=== PATIENT | male | born 1990 | race Caucasian/White ===

== ENCOUNTER 2016-09-01 12:59 | Emergency (ER) | payer MEDICAID ==
[~2016-09-01] VITALS: Ht 177.8 cm; Wt 58.0 kg
[2016-09-01 13:03] VITALS: BP 113/60; PULSE 77; RESP 14; TEMP 98.2; O2SAT 98
[2016-09-01] MEDS ORDERED: LAMO150T PO (14:31)
[2016-09-01] MEDS ORDERED: CLON0.5T PO (14:31)
[2016-09-01] MEDS ORDERED: ZOLO100T PO (14:31)
[2016-09-01 14:54] LABS: AUTOMATED NEUTROPHIL # 3.6 TH/MM3 (1.8-7.7); BASOPHIL % 0.2 % (0.0-2.0); EOSINOPHIL # 0.2 TH/MM3 (0-0.4); HEMO FLAGS DIFF FINAL; LYMPH % 24.9 % (9.0-44.0); LYMPHOCYTE # 1.4 TH/MM3 (1.0-4.8); MEAN CELL VOLUME 86.7 FL (80.0-100.0); MEAN CORPUSCULAR HGB CONC 34.6 % (32.0-36.0); MONO % 7.7 % (0.0-8.0); NEUT % 64.2 % (16.0-70.0); PLATELET COUNT 214 TH/MM3 (150-450); RED BLOOD COUNT 5.07 MIL/MM3 (4.50-5.90); RED CELL DISTRIBUTION WIDTH 13.2 % (11.6-17.2); WHITE BLOOD COUNT 5.7 TH/MM3 (4.0-11.0)
--- NOTE | 2016-09-01 15:01 | PD ---
HPI Chief Complaint: Neuro Symptoms/ Deficits Time Seen by Provider: 14:48 Travel History International Travel<30 days: No Contact w/Intl Traveler<30days: No Traveled to known affect area: No History of Present Illness HPI 25 y/o male presents with feeling unsteady and feeling like he's having more falls. He states that he has history of seizures and takes Lamictal for these and has been taking it like he should. He states he has history of multiple head injuries any so is unsteady but it has felt worse over the past day like he is dehydrated or something. He states one of his falls he feels like he started to have more back pain than he usually does from his herniated disc. He denies other concurrent complaints. He feels worse when he moves around. He denies other modifying factors. Duration is a long time but states worse over the past day. PFSH Past Medical History Medical other: Yes (previous head injury) Seizures: Yes Past Surgical History Surgical History: No Previous Surgery Social History Alcohol Use: No Tobacco Use: No Substance Use: No Allergies-Medications (Allergen,Severity, Reaction): Coded Allergies: Sulfa (Verified Allergy, Unknown, 09/01/16) Reported Meds & Prescriptions Reported Meds & Active Scripts Active Reported Zoloft (Sertraline HCl) 100 Mg Tab 100 Mg PO DAILY Lamotrigine 150 Mg Tab 150 Mg PO BID Clonazepam 0.5 Mg Tab 0.5 Mg PO BID Review of Systems Except as stated in HPI: all other systems reviewed are Neg Physical Exam Narrative GENERAL: Well-nourished, well-developed patient. SKIN: Warm and dry. HEAD: Normocephalic EYES: No injection or drainage. ENT: No nasal drainage noted. NECK: Supple, trachea midline. CARDIOVASCULAR: Regular rate and rhythm RESPIRATORY: Breath sounds equal bilaterally at apices. No accessory muscle use. GASTROINTESTINAL: Abdomen soft, non-tender, nondistended. EXTREMITIES: No edema. BACK: Nontender without obvious deformity in midline, mild ttp to bilateral paraspinal area NEUROLOGICAL: Awake and alert. Motor and sensory grossly within normal limits. Normal speech. Data Data Last Documented VS Vital Signs Date Time Temp Pulse Resp B/P Pulse Ox O2 Delivery O2 Flow Rate FiO2 09/01/16 13:03 98.2 77 14 113/60 98 Room Air Orders Complete Blood Count With Diff (09/01/16 13:31) Basic Metabolic Panel (Bmp) (09/01/16 13:31) Alcohol (Ethanol) (09/01/16 13:31) Spine, Lumbar - Ltd (Ap & Lat) (09/01/16 ) Ct Brain W/O Iv Contrast(Rout) (09/01/16 ) Lamictal (Lamotrigine) (09/01/16 14:54) Sodium Chlor 0.9% 1000 Ml Inj (Ns 1000 M (09/01/16 15:15) Labs Laboratory Tests Test 09/01/16 14:35 White Blood Count 5.7 TH/MM3 Red Blood Count 5.07 MIL/MM3 Hemoglobin 15.2 GM/DL Hematocrit 44.0 % Mean Corpuscular Volume 86.7 FL Mean Corpuscular Hemoglobin 30.0 PG Mean Corpuscular Hemoglobin 34.6 % Concent Red Cell Distribution Width 13.2 % Platelet Count 214 TH/MM3 Mean Platelet Volume 7.9 FL Neutrophils (%) (Auto) 64.2 % Lymphocytes (%) (Auto) 24.9 % Monocytes (%) (Auto) 7.7 % Eosinophils (%) (Auto) 3.0 % Basophils (%) (Auto) 0.2 % Neutrophils # (Auto) 3.6 TH/MM3 Lymphocytes # (Auto) 1.4 TH/MM3 Monocytes # (Auto) 0.4 TH/MM3 Eosinophils # (Auto) 0.2 TH/MM3 Basophils # (Auto) 0.0 TH/MM3 CBC Comment DIFF FINAL Differential Comment Sodium Level 138 MEQ/L Potassium Level 4.1 MEQ/L Chloride Level 102 MEQ/L Carbon Dioxide Level 33.3 MEQ/L Anion Gap 3 MEQ/L Blood Urea Nitrogen 14 MG/DL Creatinine 1.12 MG/DL Estimat Glomerular Filtration 80 ML/MIN Rate Random Glucose 108 MG/DL Calcium Level 9.5 MG/DL Ethyl Alcohol Level LESS THAN 3 MG/DL MDM Medical Decision Making Medical Screen Exam Complete: Yes Emergency Medical Condition: Yes Medical Record Reviewed: Yes (pmh confirmed) Interpretation(s) CBC & BMP Diagram 09/01/16 14:35 Last 24 hours Impressions Lumbar Spine X-Ray 09/01/16 0000 Signed Impressions: Service Date/Time: Thursday, September 01, 2016 15:10 - CONCLUSION: Negative for an acute process.. Ishaan De La Rosa MD FACR Head CT 09/01/16 0000 Signed Impressions: Service Date/Time: Thursday, September 01, 2016 15:13 - CONCLUSION: No acute disease. Skyler Mast MD Differential Diagnosis Electrolyte abnormality, intracranial, renal failure, seizure disorder Narrative Course Will check blood work, CT brain, lumbar x-ray and monitor ed workup no emergent findings, lamictal lab is a send out test that can be followed outpatient, Patient denies any new complaints and states that they are feeling better. Patient happy with care, all questions answered. Patient knows that follow up is incumbent on them and to return to the emergency room immediately if new or worsening symptoms develop. Patient given strict return precautions, vitals reviewed and are normal, agrees to further workup as an outpatient. case packer and sealer here and questions answered and will watch over and help coordinate care Diagnosis Primary Impression: Fall Qualified Code: W19.XXXA - Fall, initial encounter Additional Impression: Dizziness Patient Instructions: General Instructions Additional Instructions: follow with primary sunday, return as needed, tylenol as needed Med/Other Pt SpecificInfo: No Change to Meds Disposition: 01 DISCHARGE HOME Condition: Stable Genevieve Byrne MD Sep 01, 2016 15:00
[2016-09-01 15:06] LABS: ANION GAP 3 MEQ/L (5-15); BICARBONATE 33.3 MEQ/L (21.0-32.0); BLOOD UREA NITROGEN 14 MG/DL (7-18); CHLORIDE 102 MEQ/L (98-107); GLOMERULAR FILTRATION RATE 80 ML/MIN (>89); POTASSIUM 4.1 MEQ/L (3.5-5.1); SODIUM (NA) 138 MEQ/L (136-145)
[2016-09-01] MEDS ORDERED: SODIUM CHLOR 0.9% 1000 ML INJ 1,000 ML IV ONE (15:15)
--- NOTE | 2016-09-01 15:44 | RADRPT ---
EXAM DATE/TIME: 09/01/2016 15:10 [facility] COMPARISON: No previous studies available for comparison. INDICATIONS : Lower back pain post seizure today MEDICAL HISTORY : None. SURGICAL HISTORY : None. ENCOUNTER: Initial ACUITY: 1 day PAIN SCORE: 5/10 LOCATION: Lumbar spine FINDINGS: Two view examination was performed. There are five non-rib bearing vertebral bodies. The vertebral bodies are in normal alignment without evidence of subluxation or scoliosis. The disc spaces are alejandra ntained. The pedicles are intact. Bony mineralization is normal. No fracture is identified. CONCLUSION: Negative for an acute process.. Ishaan De La Rosa MD FACR on September 01, 2016 at 15:41 Board Certified Radiologist. This report was verified electronically.
--- NOTE | 2016-09-01 15:47 | RADRPT ---
EXAM DATE/TIME: 09/01/2016 15:13 [facility] COMPARISON: No previous studies available for comparison. INDICATIONS : Evaluate for head injury, seizures. RADIATION DOSE: 56.35 CTDIvol (mGy) MEDICAL HISTORY : Seizures. SURGICAL HISTORY : None. ENCOUNTER: Initial ACUITY: 1 day PAIN SCALE: 2/10 LOCATION: Bilateral cranial TECHNIQUE: Multiple contiguous axial images were obtained of the head. Using automated exposure control and adj ustment of the mA and/or kV according to patient size, radiation dose was kept as low as reasonably a chievable to obtain optimal diagnostic quality images. DICOM format image data is available electro nically for review and comparison. FINDINGS: CEREBRUM: The ventricles are normal for age. No evidence of midline shift, mass lesion, hemorrhage or acute in farction. No extra-axial fluid collections are seen. POSTERIOR FOSSA: The cerebellum and brainstem are intact. The 4th ventricle is midline. The cerebellopontine angle i s unremarkable. EXTRACRANIAL: The visualized portion of the orbits is intact. SKULL: The calvaria is intact. No evidence of skull fracture. CONCLUSION: No acute disease. Skyler Mast MD on September 01, 2016 at 15:44 Board Certified Radiologist. This report was verified electronically.
[2016-09-01 17:14] VITALS: BP 126/75
== END 2016-09-01 17:15 | disposition home or self-care (01) ==
LOC: NEPE 12:59
DX: R42 Dizziness and giddiness (principal); R56.9 Unspecified convulsions; Z79.899 Other long term (current) drug therapy
CPT/HCPCS: 70450; 72100; 80048; 80175; 80307; 85025; 96360; 99285; J7030

== ENCOUNTER → 2016-10-13 | Outpatient (CLI) | payer MEDICAID ==
[~2016-10-13] MED LIST: CLON0.5T PO; LAMO150T PO; ZOLO100T PO
--- NOTE | 2016-10-14 17:05 | EKG ---
Date Performed: 10/13/2016 Time Performed: 12:52:55 PTAGE: 25 years EKG: Sinus rhythm POSSIBLE LEFT ATRIAL ENLARGEMENT POSSIBLE RIGHT VENTRICULAR CONDUCTION DELAY BORDERLINE ECG NO PREVIOUS TRACING DOCTOR: Robert Treviño Interpretating Date/Time 10/14/2016 17:04:13
== END ==
LOC: HCAV 12:39
PROVIDERS: ATTEND Psychiatry & Neurology Child & Adolescent Psychiatry
DX: F43.12 Post-traumatic stress disorder, chronic (principal); F41.1 Generalized anxiety disorder; R94.31 Abnormal electrocardiogram [ECG] [EKG]
CPT/HCPCS: 93005